=== PATIENT | male | born 2000 | race African-American/Black ===

== ENCOUNTER 2019-02-15 20:38 | Emergency (ER) | payer MEDICAID ==
[~2019-02-15] VITALS: Ht 175.3 cm; Wt 62.0 kg
[2019-02-16] MEDS ORDERED: IBUPROFEN 600MG TABLET PO ONE
[2019-02-16 00:11] VITALS: BP 110/63
== END 2019-02-16 00:12 | disposition home or self-care (01) ==
LOC: ER 20:38
DX: J34.0 Abscess, furuncle and carbuncle of nose (principal); F17.210 Nicotine dependence, cigarettes, uncomplicated; F12.90 Cannabis use, unspecified, uncomplicated
CPT/HCPCS: 99283